=== PATIENT | male | born 1995 | race Caucasian/White ===

== ENCOUNTER 2018-09-02 21:18 | Emergency (ER) | payer SELFPAY ==
[~2018-09-02] VITALS: Ht 182.9 cm; Wt 81.6 kg
[2018-09-02 21:20] VITALS: Ht 182.9 cm; Wt 81.6 kg
[2018-09-02 22:13] LABS: BASOPHIL % 0.2 % (0-2); PLATELET COUNT 236 x10^3mcL (130-400); RED CELL DISTRIBUTION WIDTH 11.8 % (11.5-14.5)
[2018-09-02 22:30] LABS: CALCIUM 9.5 mg/dL (8.5-10.1); CARBON DIOXIDE 26.3 mmol/L (21-32); CHLORIDE SERUM 101 mmol/L (98-107); CREATININE SERUM 1.3 mg/dL (0.7-1.3); GFR1 > 60 mL/min; GLUCOSE SERUM 104 mg/dL (74-106); POTASSIUM SERUM 3.3 mmol/L (3.5-5.1); SODIUM SERUM 139 mmol/L (136-145)
[2018-09-02 22:41] LABS: ALBUMIN 4.6 g/dL (3.4-5.0); ALKALINE PHOSPHATASE 97 U/L (46-116); ALT/SGPT 37 U/L (16-63); AST/SGOT 28 U/L (15-37); BILIRUBIN TOTAL 0.79 mg/dL (0.20-1.00); LIPASE 81 IU/L (73-393)
[2018-09-02 22:42] LABS: TOTAL PROTEIN, SERUM 8.5 g/dL (6.4-8.2)
[2018-09-02 23:18] LABS: microscopic required? NO
[2018-09-02 23:32] LABS: UA SPECIFIC GRAVITY 1.015 (1.005-1.035); urine erythrocyte NEGATIVE (NEGATIVE)
[2018-09-03 00:35] VITALS: BP 115/88
== END 2018-09-03 00:35 | disposition home or self-care (01) ==
LOC: ED 21:18
PROVIDERS: Emergency Medicine
DX: M54.5 Low back pain (principal); R55 Syncope and collapse; R11.10 Vomiting, unspecified; R10.9 Unspecified abdominal pain; R06.02 Shortness of breath; R20.2 Paresthesia of skin
CPT/HCPCS: 36415; 84439; G0480; Q0162